=== PATIENT | female | born 1945 | race Caucasian/White ===

== ENCOUNTER → 2018-06-15 11:56 | Outpatient (CLI) | payer MEDICARE, SELFPAY ==
--- NOTE | 2018-06-15 | DI.MG.S_ITS ---
BILATERAL DIGITAL SCREENING MAMMOGRAM 3D/2D WITH CAD: 06/15/2018 CLINICAL: Routine screening. Comparison is made to exams dated: 05/20/2016 mammogram, 05/15/2015 mammogram, 04/26/2014 mammogram, 07/19/2009 mammogram, 10/17/2010 mammogram, and 06/14/2008 mammogram - [facility]. There are scattered fibroglandular elements in both breasts. Current study was also evaluated with a Computer Aided Detection (CAD) system. There is a focal asymmetry in the upper outer right breast that has been present and stable in size on multiple comparison exams dating back to 06/14/2008. No significant masses, calcifications, or other findings are seen in either breast. There has been no significant interval change. IMPRESSION: There is no mammographic evidence of malignancy. A 1 year screening mammogram is recommended. This exam was interpreted at Station ID: [id number]. NOTE: For mammograms, a report in lay terms will be sent to the patient. Approximately 15% of breast malignancies will not be visualized mammographically. In the management of a palpable breast mass, a negative mammogram must not discourage biopsy of a clinically suspicious lesion. Electronically Signed By: Hussain Acuña M.D. ecl/:06/15/2018 20:35:00 letter sent: Normal Exam ACR BI-RADS Category 2: Benign Finding(s) 3342F
== END ==
PROVIDERS: Visit Provider Family Medicine
DX: Z12.31 Encounter for screening mammogram for malignant neoplasm of breast (principal)
CPT/HCPCS: 77063; 77067

== ENCOUNTER → 2019-08-26 08:23 | Outpatient (CLI) | payer MEDICARE, SELFPAY ==
--- NOTE | 2019-08-26 | DI.MG.S_ITS ---
BILATERAL DIGITAL SCREENING MAMMOGRAM 3D/2D WITH CAD: 08/26/2019 CLINICAL: Routine screening. Comparison is made to exams dated: 06/15/2018 mammogram, 05/20/2016 mammogram, and 05/15/2015 mammogram - [facility]. There are scattered fibroglandular elements in both breasts. Current study was also evaluated with a Computer Aided Detection (CAD) system. No significant masses, calcifications, or other findings are seen in either breast. There has been no significant interval change. IMPRESSION: NEGATIVE There is no mammographic evidence of malignancy. A 1 year screening mammogram is recommended. This exam was interpreted at Station ID: [id number]. NOTE: For mammograms, a report in lay terms will be sent to the patient. Approximately 15% of breast malignancies will not be visualized mammographically. In the management of a palpable breast mass, a negative mammogram must not discourage biopsy of a clinically suspicious lesion. Electronically Signed By: Joann rivera/suzanne:08/27/2019 09:45:27 letter sent: Normal Exam ACR BI-RADS Category 1: Negative 3341F
== END ==
PROVIDERS: Family Provider Nurse Practitioner; PCP Family Medicine; Referring Provider Family Medicine; Visit Provider Family Medicine
DX: Z12.31 Encounter for screening mammogram for malignant neoplasm of breast (principal)
CPT/HCPCS: 77063; 77067

== ENCOUNTER 2021-03-05 09:54 | Day surgery (SDC) | payer MEDICARE, SELFPAY ==
[2021-03-05] VITALS (8 sets, daily range): BP systolic 147–169; BP diastolic 89–103; PULSE 65–90; RESP 12–16; TEMP 36.1–37; O2SAT 91–98; BMI 23.9
--- NOTE | 2021-03-05 | PATH_ITS ---
[facility] Accession Number: [id number] . 01 Material submitted: . rectum - RECTAL POLYP . 02 Diagnosis: Rectal Polyp, Biopsy: Traditional serrated adenoma. MRV 03/07/2021 1008 Local . 02 Electronically signed: . Max Genao MD, PhD, Pathologist NPI- [id number] . 01 Gross description: . RECTAL POLYP: Received in formalin are multiple fragment(s) of mckeon, soft tissue measuring 2.4 x 1.3 x 0.7 cm in aggregate submitted entirely in 1 cassette(s) /JERROD 03/06/2021 0335 Local . 02 Pathologist provided ICD-10: D12.8 . 02 CPT . 473941 Performed at: [address] [facility] Cyt[facility] [address] [place] [address], [place], [place] [id number] MD Antwon Blanchard MD Phone: [phone] Performed at: 02 [facility] [address] [place], [place] [id number] MD Lidia Rinaldi MD Phone: [phone]
[2021-03-05] MEDS: LACTATED RINGERS 1,000 ML 200 ML IV (10:45)
--- NOTE | 2021-03-05 11:38 | PM.PREOP ---
Pre-operative Note Interval Note History & Physical reviewed/Exam performed by Physician: Yes Changes to H&P: No
--- NOTE | 2021-03-05 11:43 | PM.PREOP ---
Pre-operative Note Interval Note History & Physical reviewed/Exam performed by Physician: Yes Changes to H&P: No
[2021-03-05] MEDS: LIDOCAINE 4% SOLN 50 ML 20 ML TOP (11:53)
[2021-03-05] MEDS: MIDAZOLAM 5 MG/5 ML VIAL IV (12:17)
[2021-03-05] MEDS: fentaNYL 250 MCG/5 ML INJ IV (12:17)
--- NOTE | 2021-03-05 12:44 | PM.OP.ENDO ---
Operative Date/Time/Diagnoses Date of procedure: 03/05/21 Time of procedure: 12:44 Pre-op diagnosis: GI bleed Post-op diagnosis: same Procedure & Clinicians Study performed: Esophagoduodenoscopy and colonoscopy Same procedure as scheduled: Yes Indications: GI bleed Surgeon: Xavi Ruano Procedure Notes Procedure in detail: Medications: Conscious sedation using 6mg IV midazolam and 250mcg IV of fentanyl The history and physical was performed/updated and the patient is ASA class is 2. The procedure was discussed in detail with the patient. Potential risks complications including infection, bleeding, missed diagnosis, perforation, need for surgery, and were explained. Their questions were answered and informed consent was obtained. Patient placed in left lateral decubitus position. Time out was performed. Procedural sedation was administered with Versed and Fentanyl. A bite block was placed. the scope was inserted into the mouth and advanced through the esophagus and into the stomach which had gastritis and blood clots, no ulcers or active hemorrhage.. The pylorus was intubated and the duodenum was normal to the 2nd portion. The scope was retroflexed within the stomach and there was a moderate hiatal hernia. The scope was withdrawn into the esophagus the Z line was seen at 35 cm from the incisions. There was no Vyas's esophagitis or masses or strictures. Stomach was desufflated and scope removed. Patient tolerated procedure well. Examination began with a thorough inspection of the perianal area there was no evidence of fissures, fistulae, external hemorrhoids or cutaneous malignancy. The colonoscopy scope was then placed into the anal canal and was advanced to the cecum, which was identified by the ileocecal valve, the appendiceal orifice and the confluence of the taenia. The scope was then slowly withdrawn examining colon thoroughly in all directions, irrigating it of any residual stool. FINDINGS 1. No masses 2. rectal polyp distal rectum 1 cm removed with snare in its entirety The patient tolerated the procedure well. They will be discharged once criteria are met. The prep was of good/excellent quality. The withdrawl time was 15 minutes. The sedation time was 47 minutes. Specimen(s): other (rectal polyp) Complications: none Impression: gastritis, rectal polyp Post-procedure Recommendations: Colonscopy in 5 years Plan for aftercare: stop aspirin start omeprazole. Disposition: same day surgery
== END 2021-03-05 13:45 | disposition home or self-care (01) ==
PROVIDERS: Family Provider Nurse Practitioner; PCP Family Medicine; Referring Provider Surgery; Visit Provider Surgery
PROC: 0DJ08ZZ Inspection of Upper Intestinal Tract, Via Natural or Artificial Opening Endoscopic (ICD-10-PCS; CPT 43235; principal; 2021-03-05 11:30)
PROC: 0DJD8ZZ Inspection of Lower Intestinal Tract, Via Natural or Artificial Opening Endoscopic (ICD-10-PCS; CPT 45378; 2021-03-05 11:30)
DX: K92.2 Gastrointestinal hemorrhage, unspecified (principal); K21.9 Gastro-esophageal reflux disease without esophagitis; D12.8 Benign neoplasm of rectum
CPT/HCPCS: 45385; 43235; 99152; 99153; J2250; J3010

== ENCOUNTER → 2021-03-15 10:55 | Outpatient (CLI) | payer MEDICARE, SELFPAY | PROVIDERS: Family Provider Nurse Practitioner; PCP Family Medicine; Referring Provider Family Medicine; Visit Provider Family Medicine | DX: M85.852 Other specified disorders of bone density and structure, left thigh (principal); Z78.0 Asymptomatic menopausal state; K92.9 Disease of digestive system, unspecified; Z82.62 Family history of osteoporosis | CPT/HCPCS: 77080 ==